=== PATIENT | female | born 1930 | race Asian ===

== ENCOUNTER 2018-02-09 06:08 | Observation (INO) | payer OTHER, BC ==
[~2018-02-09] VITALS: Ht 152.4 cm; Wt 37.9 kg
[2018-02-09 06:10] VITALS: Ht 152.4 cm; Wt 37.9 kg
[2018-02-09 07:11] LABS: BASOPHIL % 0.2 % (0-2); PLATELET COUNT 188 x10^3mcL (130-400); RED CELL DISTRIBUTION WIDTH 13.8 % (11.5-14.5)
[2018-02-09 07:32] LABS: CHLORIDE SERUM 109 mmol/L (98-107); CREATININE SERUM 0.8 mg/dL (0.6-1.0); GLUCOSE SERUM 96 mg/dL (74-106); SODIUM SERUM 143 mmol/L (136-145)
[2018-02-09 07:36] LABS: ALBUMIN 3.2 g/dL (3.4-5.0); ALKALINE PHOSPHATASE 48 U/L (46-116); ALT/SGPT 24 U/L (14-59); AST/SGOT 28 U/L (15-37); BILIRUBIN TOTAL 0.67 mg/dL (0.20-1.00); CHOLESTEROL 193 mg/dL (<200); CHOLESTEROL/HDL RATIO 2.6; HDL CHOLESTEROL 73 mg/dL (40-60); LIPASE 144 IU/L (73-393); TOTAL PROTEIN, SERUM 7.2 g/dL (6.4-8.2); TRIGLYCERIDES 77 mg/dL (<150)
[2018-02-09 07:50] LABS: T3 TOTAL 0.92 ng/mL
[2018-02-09 08:06] LABS: microscopic required? YES; urine erythrocyte TRACE (NEGATIVE)
[2018-02-09 08:25] LABS: FREE T4 1.11 ng/dL (0.76-1.46); FREE THYROXINE INDEX 2.9 ug/dL (1.4-4.5); T4(THYROXINE) 7.9 ug/dL (4.7-13.3)
[2018-02-09] MEDS ORDERED: OPTIMUM VITAMI100 MG PO (10:42)
[2018-02-09 11:09] VITALS: BP 129/53
[2018-02-09 11:41] LABS: PHOSPHOROUS 3.1 mg/dL (2.5-4.9)
[2018-02-09 12:46] LABS: AMPHETAMINE QUAL UR NONE DETECTED (NEG <=1000)
[2018-02-09] MEDS ORDERED: COMBIGAN5 ML OP (12:57)
[2018-02-09 14:46] VITALS: BP 125/57
[2018-02-09 18:09] VITALS: BP 90/44
[2018-02-09 21:49] VITALS: BP 91/44
[2018-02-10 00:30] VITALS: BP 101/75
[2018-02-10 06:14] VITALS: BP 120/59
[2018-02-10 07:01] LABS: BASOPHIL % 0.3 % (0-2); PLATELET COUNT 158 x10^3mcL (130-400); RED CELL DISTRIBUTION WIDTH 13.7 % (11.5-14.5)
[2018-02-10 07:07] LABS: CARBON DIOXIDE 26.3 mmol/L (21-32); CHLORIDE SERUM 113 mmol/L (98-107); CREATININE SERUM 0.6 mg/dL (0.6-1.0); GLUCOSE SERUM 90 mg/dL (74-106); PHOSPHOROUS 2.2 mg/dL (2.5-4.9); POTASSIUM SERUM 3.9 mmol/L (3.5-5.1); SODIUM SERUM 145 mmol/L (136-145)
[2018-02-10] MEDS ORDERED: FLE10 PO (08:13)
[2018-02-10 09:20] VITALS: BP 146/60
[2018-02-10] MEDS ORDERED: LEVAQUIN750 MG PO (13:37)
[2018-02-10] MEDS ORDERED: LAC PO (13:38)
[2018-02-10 13:43] VITALS: BP 131/56
[2018-02-10 16:34] VITALS: BP 131/56
== END 2018-02-10 17:09 | disposition home or self-care (01) | DRG 205 ==
LOC: ED 06:08 → DU 09:22
PROVIDERS: Family Medicine; Specialist
DX: M94.0 Chondrocostal junction syndrome [Tietze] (principal); N17.0 Acute kidney failure with tubular necrosis; N39.0 Urinary tract infection, site not specified; Z68.1 Body mass index [BMI] 19.9 or less, adult; G90.8 Other disorders of autonomic nervous system; M50.33 Other cervical disc degeneration, cervicothoracic region; M51.36 Other intervertebral disc degeneration, lumbar region; M81.0 Age-related osteoporosis without current pathological fracture; E78.5 Hyperlipidemia, unspecified; H40.9 Unspecified glaucoma; Z96.641 Presence of right artificial hip joint; Z98.1 Arthrodesis status
CPT/HCPCS: 83880; 84439; 97110-GP; 97116-GP; 97530-GP; G0378; J0696; J7030; J7040; Q0092; Q9967

== ENCOUNTER 2019-10-24 16:02 | Emergency (ER) | payer OTHER, BC ==
[~2019-10-24] VITALS: Ht 152.4 cm; Wt 38.1 kg
[~2019-10-24 16:02] MED LIST: COMBIGAN5 ML OP; FLE10 PO; LAC PO; LEVAQUIN750 MG PO; OPTIMUM VITAMI100 MG PO
[2019-10-24 16:10] VITALS: Ht 152.4 cm; Wt 38.1 kg
[2019-10-24 19:28] VITALS: BP 128/64
== END 2019-10-24 19:28 | disposition home or self-care (01) ==
LOC: ED 16:02
DX: S09.8XXA Other specified injuries of head, initial encounter (principal); M54.2 Cervicalgia; E78.00 Pure hypercholesterolemia, unspecified; Z98.890 Other specified postprocedural states; W18.39XA Other fall on same level, initial encounter; Y93.89 Activity, other specified; Y92.89 Other specified places as the place of occurrence of the external cause; Y99.8 Other external cause status